=== PATIENT | male | born 1975 | race Caucasian/White ===

== ENCOUNTER → 2017-06-25 | Outpatient (REF) ==
[~2017-06-25] MED LIST: CALCITRIOL PO; CARAFATE 1GM1 G PO; CARVEDILOL PO; COREG12.5 MG PO; DILTIAZEM 360 MG PO; ELITE MAGNESIUM1 TAB PO; LIPITOR 10MG10 MG PO; LIPITOR20 MG PO; MILLIPRED DP5 MG PO; MYFORTIC360 MG PO; NORMODYNE100 MG PO; NORVASC2.5 MG PO; PRILOSEC 20MG20 MG PO; PROGRAF 1MG1 MG PO; VERAPAMIL 440 MG/TAB PO; VITAMIN D 400400 IU PO
== END ==
LOC: WSOH 16:15
DX: Z02.89 Encounter for other administrative examinations (principal)

== ENCOUNTER → 2019-07-07 | Outpatient (CLI) | payer OTHER | LOC: COL.RAD 14:08 → COL.LAB 14:08 | DX: M48.07 Spinal stenosis, lumbosacral region (principal) ==

== ENCOUNTER 2021-10-24 14:10 | Outpatient (CLI) | payer OTHER ==
[2021-10-24] VITALS (7 sets, daily range): BP systolic 120–131; BP diastolic 86–92; PULSE 61–69; TEMP 98
[~2021-10-24] VITALS: Ht 182.9 cm; Wt 86.3 kg
[~2021-10-24 14:10] MED LIST changes: +MASON NATURAL2000 IU PO; -VITAMIN D 400400 IU PO
[2021-10-24] MEDS ORDERED: ZESTRIL 10MG10 MG PO (14:13)
[2021-10-24] MEDS ORDERED: ASPIRIN 81M81 MG/TA2 PO (14:16)
== END 2021-10-24 16:20 ==
LOC: EUO 14:10
DX: U07.1 COVID-19 (principal)
CPT/HCPCS: M0247; Q0247

== ENCOUNTER 2022-01-08 11:48 | Outpatient (CLI) | payer OTHER ==
[~2022-01-08] VITALS: Ht 182.9 cm; Wt 85.0 kg
[~2022-01-08 11:48] MED LIST changes: +ASPIRIN 81M81 MG/TA2 PO; +ZESTRIL 10MG10 MG PO
[2022-01-08 11:55] VITALS: BP 120/86; PULSE 68; TEMP 98.3
== END 2022-01-08 18:01 | disposition home or self-care (01) ==
LOC: EUO 11:48
DX: Z51.81 Encounter for therapeutic drug level monitoring (principal)
CPT/HCPCS: M0220; Q0221

== ENCOUNTER → 2023-06-18 | Outpatient (CLI) | payer OTHER ==
[2023-06-18 08:03] LABS: BASO % 0.8 % (0.0-2.0); EOS # 0.1 K/mm3 (0.0-0.7); GRAN # 2.9 K/mm3 (1.4-6.5); GRAN % 58.7 % (42.2-75.2); HEMATOCRIT 42.6 % (42.0-52.0); HEMOGLOBIN 14.3 g/dl (13.5-18.0); LYMPH # 1.4 K/mm3 (1.2-3.4); LYMPH % 28.5 % (20.0-51.0); MEAN CELL VOLUME 85 fl (80.0-100.0); MEAN CORPUSCULAR HEMOGLOBIN 29 pg (27-31); MEAN CORPUSCULAR HGB CONC 34 g/dl (33.0-37.0); MEAN PLATELET VOLUME 9.9 fl (7.4-10.4); MONO # 0.5 K/mm3 (0.1-0.6); MONO % 9.8 % (1.7-9.3); PLATELET COUNT 221 K/mm3 (130-400); REDCELL DISTRIBUTION WIDTH-CV 12.5 % (11.5-14.5)
[2023-06-18 08:10] LABS: SQUAMOUS EPITHELIAL 0-2 /hpf (0-10); URINE BACTERIA None Seen /hpf (NONE SEEN); URINE RBC None Seen /hpf (0-2)
[2023-06-18 08:16] LABS: URINE APPEARANCE Clear (CLEAR/HAZY); URINE BLOOD Negative (NEGATIVE); URINE COLOR Yellow (YELLOW); URINE GLUCOSE Negative (NEGATIVE); URINE KETONE Negative (NEGATIVE); URINE NITRATE Negative (NEGATIVE); URINE PROTEIN(semi-quant) Negative (NEGATIVE); URINE UROBILINOGEN 0.2 (NEGATIVE)
[2023-06-18 08:22] LABS: ALBUMIN 4.4 gm/dL (3.5-5.0); BILIRUBIN,TOTAL 0.4 mg/dL (0.2-1.2); CALCIUM 9.5 mg/dL (8.4-10.2); CREATININE, serum 1.13 mg/dL (0.72-1.25); MAGNESIUM 1.8 mg/dL (1.6-2.6); PHOSPHOROUS 2.9 mg/dL (2.3-4.7); POTASSIUM 4.2 mmol/L (3.5-4.5); TOTAL PROTEIN 7.2 gm/dL (6.2-8.1); URIC ACID 6.9 mg/dL (3.5-7.2)
[2023-06-18 08:55] LABS: COLLECTION METHOD CLEAN CATCH
== END ==
LOC: COL.LAB 07:31
PROVIDERS: Internal Medicine
DX: D84.9 Immunodeficiency, unspecified (principal); Z94.0 Kidney transplant status; Z51.81 Encounter for therapeutic drug level monitoring; Z79.899 Other long term (current) drug therapy

== ENCOUNTER → 2023-10-15 | Outpatient (CLI) | payer OTHER ==
[2023-10-15 09:43] LABS: COLLECTION METHOD CLEAN CATCH
[2023-10-15 09:57] LABS: EOS # 0.1 K/mm3 (0.0-0.7); EOS % 2.8 % (0.0-4.0); GRAN # 2.2 K/mm3 (1.4-6.5); GRAN % 54.1 % (42.2-75.2); HEMATOCRIT 40.6 % (42.0-52.0); HEMOGLOBIN 13.9 g/dl (13.5-18.0); LYMPH # 1.2 K/mm3 (1.2-3.4); MEAN CELL VOLUME 86 fl (80.0-100.0); MEAN CORPUSCULAR HEMOGLOBIN 29 pg (27-31); MEAN CORPUSCULAR HGB CONC 34 g/dl (33.0-37.0); MEAN PLATELET VOLUME 10.1 fl (7.4-10.4); MONO # 0.4 K/mm3 (0.1-0.6); MONO % 10.8 % (1.7-9.3); PLATELET COUNT 199 K/mm3 (130-400); RED BLOOD COUNT 4.73 M/mm3 (4.20-5.60)
[2023-10-15 10:03] LABS: BILIRUBIN,TOTAL 0.4 mg/dL (0.2-1.2); CALCIUM 9.5 mg/dL (8.4-10.2); CREATININE, serum 1.01 mg/dL (0.72-1.25); MAGNESIUM 1.6 mg/dL (1.6-2.6); PHOSPHOROUS 2.6 mg/dL (2.3-4.7); POTASSIUM 4.8 mmol/L (3.5-4.5); TOTAL PROTEIN 6.6 gm/dL (6.2-8.1)
[2023-10-15 10:26] LABS: URINE APPEARANCE Clear (CLEAR/HAZY); URINE BLOOD Negative (NEGATIVE); URINE COLOR Yellow (YELLOW); URINE GLUCOSE Negative (NEGATIVE); URINE KETONE Negative (NEGATIVE); URINE NITRATE Negative (NEGATIVE); URINE PROTEIN(semi-quant) Negative (NEGATIVE); URINE UROBILINOGEN 0.2 E.U/dL (0.2-1.0)
[2023-10-15 10:27] LABS: SQUAMOUS EPITHELIAL 0-2 /hpf (0-10); URINE RBC None Seen /hpf (0-2)
== END ==
LOC: COL.LAB 09:03
PROVIDERS: Internal Medicine
DX: Z51.81 Encounter for therapeutic drug level monitoring (principal); D84.9 Immunodeficiency, unspecified; Z94.0 Kidney transplant status; Z79.899 Other long term (current) drug therapy